=== PATIENT | male | born 1990 | race Caucasian/White ===

== ENCOUNTER 2017-01-02 21:33 | Emergency (ER) | payer MEDICAID ==
[~2017-01-02] VITALS: Ht 175.3 cm; Wt 103.6 kg
[2017-01-02 21:37] VITALS: Ht 175.3 cm; Wt 103.6 kg
--- NOTE | 2017-01-02 21:48 | ERD ---
ER Documentation Chief Complaint Date/Time DATE: 01/02/17 TIME: 21:46 Chief Complaint needs to be medically cleared for booking,tazed by [facility] This is a 26-year-old male who presents to the emergency room for medical clearance. The patient is in custody of [facility] and was brought in for evaluation because he was tased. The patient has no complaints at this time. According to police he does have a taser prong in the left upper extremity. The patient denies any pain anywhere in his body. Denies any chest pain, shortness of breath or palpitations. ROS All systems reviewed and are negative except as per history of present illness. Allergies Allergies: Coded Allergies: No Known Allergy (Unverified , 01/02/17) Physical Exam Vitals Vital Signs Date Time Temp Pulse Resp B/P Pulse Ox O2 Delivery O2 Flow Rate FiO2 01/02/17 21:37 99.3 111 18 118/92 97 Physical Exam Const: No acute distress Head: Atraumatic Eyes: Normal Conjunctiva ENT: Normal External Ears, Nose and Mouth. Neck: Full range of motion..~ No meningismus. Resp: Clear to auscultation bilaterally Cardio: Regular rate and rhythm, no murmurs Abd: Soft, non tender, non distended. Normal bowel sounds Skin: Taser prong in left upper extremity, no petechiae or rashes Back: No midline or flank tenderness Ext: No cyanosis, or edema Neur: Awake and alert Psych: Normal Mood and Affect Procedures/MDM Foreign Body Removal by me: Location: Left upper extremity Anesthesia: None Technique: Traction Complications: Neurovascularly intact post procedure 48 hour wound check. Scar minimization instructions given. EKG: Rate/Rhythm: Sinus tachycardia QRS, ST, T-waves: [No changes consistent w/ acute ischemia] Impression: [No evidence of ischemia or arrhythmia] This 26-year-old male presents to the ER for evaluation by [place] police for medical clearance for booking. This patient was tased. I did note taser prong in the left upper extremity. Taser prong was removed without difficulty. EKG was obtained which does show sinus tachycardia. This patient is hemodynamically stable. Not hypoxic, and in no acute distress. The patient will be medically cleared for booking at this time. Departure Diagnosis: Primary Impression: Electrocution caused by Taser Additional Impressions: Foreign body (FB) in soft tissue Encounter for medical clearance for patient hold Condition: Stable MILAGROS DESIR DO January 02, 2017 21:48
== END 2017-01-02 22:09 | disposition home or self-care (01) ==
LOC: E/R 21:33
DX: T75.4XXA Electrocution, initial encounter (principal); S40.852A Superficial foreign body of left upper arm, initial encounter; Y35 Legal intervention; Z02.89 Encounter for other administrative examinations
CPT/HCPCS: 93005